=== PATIENT | male | born 1960 | race Caucasian/White ===

== ENCOUNTER 2020-08-31 11:06 | Inpatient (IN) | payer OTHER ==
[~2020-08-31] VITALS: Ht 180.3 cm; Wt 84.1 kg
[2020-08-31 12:06] LABS: BASOPHILS 0 % (0-2); EOSINOPHILS 0 % (0-7); HEMATOCRIT 36.3 % (42.0-54.0); HEMOGLOBIN 12.8 g/dL (13.5-17.5); IMMATURE GRANULOCYTES 0.3 % (0-5); LYMPHOCYTE ABS# 0.55 10x3/uL (1.32-3.57); LYMPHOCYTES 7.4 % (15-50); MCH 29.7 pg (26.0-34.0); MCHC 35.3 g/dL (31.0-37.0); MCV 84.2 fL (80.0-100.0); MEAN PLATELET VOLUME 9.3 fL (7.4-10.4); MONOCYTES 6.7 % (2-11); NEUTROPHIL ABS# 6.34 10x3/uL (1.78-5.38); NEUTROPHILS 85.6 % (40-80); PLATELET COUNT 283 10x3/uL (130-400); RBC 4.31 10x6/uL (4.20-6.10); RDW 11.8 % (11.5-14.5); WBC 7.4 10x3/uL (4.8-10.8)
[2020-08-31 12:16] LABS: APTT 44.2 SECONDS (22.8-39.4)
[2020-08-31 12:17] LABS: CALC OSMOLALITY 267 mosm/kg (275-300); CALCIUM 8.5 mg/dL (8.5-10.1); CARBON DIOXIDE 28.1 mmol/L (21.0-32.0); CHLORIDE - SERUM 97 mmol/L (98-107); CREATININE - SERUM 1.3 mg/dL (0.6-1.3); GLUCOSE 126 mg/dL (74-106); INR 1.17 (0.85-1.17); POTASSIUM - SERUM 4.5 mmol/L (3.5-5.1); PROTIME 13.8 SECONDS (11.6-15.0); SODIUM 131 mmol/L (136-145); UREA NITROGEN 22 mg/dL (7-18); eGFR NON AFRICAN AMERICAN 60 mL/min (90-120)
[2020-08-31 12:32] LABS: ALBUMIN 2.7 g/dL (3.4-5.0); ALKALINE PHOSPHATASE 41 U/L (30-120); ALT (SGPT) 28 U/L (10-68); BILIRUBIN - TOTAL 0.47 mg/dL (0.2-1.3); CKMB 0.4 U/L (0.0-3.6); CREATINE KINASE 135 UL (21-232); PRO BNP 542 pg/mL (0-125); PROTEIN - SERUM 6.4 g/dL (6.4-8.2)
[2020-08-31 12:34] LABS: TROPONIN-I < 0.017 ng/mL (0.000-0.060)
[2020-08-31 14:00] VITALS: BP 100/61
[2020-08-31 14:45] VITALS: BP 106/70
[2020-08-31 15:01] VITALS: BP 105/64
--- NOTE | 2020-08-31 15:05 | NUR ---
RECEIVED PT TO ROOM 2101 VIA WHEELCHAIR, PT A/O X4, A LITTLE SOB ON RA, PLACED ON 2L NC AND ENCOURAGED PT TO TAKE IN DEEP BREATHS. RT HAND INFUSING NS AT 100CC/HR. ORIENTED PT TO ROOM AND CALL LIGHT, WILL ASSESS PT AND START PLAN OF CARE.
[2020-08-31 15:18] VITALS: Ht 180.3 cm; Wt 84.1 kg
[2020-08-31 15:45] LABS: C-REACTIVE PROTEIN 4.1 mg/dL (0.0-0.9)
--- NOTE | 2020-08-31 16:22 | NUR ---
PT RESTING COMFORTABLY IN BED, DENIES ANY NEEDS. CALL LIGHT IN REACH.
--- NOTE | 2020-08-31 16:32 | NUR ---
UPDATED PT'S AYAKA ABOUT PT'S CONDITION AND PLAN OF CARE.
--- NOTE | 2020-08-31 19:13 | NUR ---
RECEIVED REPORT, WILL ASSUME CARE OF PT, SLEEPING, NO DISTRESS NOTICED, BED IS LOW, SRX2, CALL LIGHT IN REACH, WILL CONTINUE PLAN OF CARE
[2020-08-31 19:32] VITALS: BP 101/64
[2020-08-31 22:21] VITALS: BP 104/65
--- NOTE | 2020-08-31 23:57 | NUR ---
I have reviewed this patient and I concur with the Shift Assessment completed by the Licensed Practical Nurse today this shift.
[2020-09-01 05:52] LABS: BASOPHILS 0 % (0-2); EOSINOPHILS 0 % (0-7); HEMATOCRIT 36.8 % (42.0-54.0); HEMOGLOBIN 12.7 g/dL (13.5-17.5); IMMATURE GRANULOCYTES 0.6 % (0-5); LYMPHOCYTE ABS# 0.58 10x3/uL (1.32-3.57); LYMPHOCYTES 11.8 % (15-50); MCH 29.1 pg (26.0-34.0); MCHC 34.5 g/dL (31.0-37.0); MCV 84.2 fL (80.0-100.0); MEAN PLATELET VOLUME 9.4 fL (7.4-10.4); MONOCYTES 8.1 % (2-11); NEUTROPHILS 79.5 % (40-80); PLATELET COUNT 306 10x3/uL (130-400); RBC 4.37 10x6/uL (4.20-6.10); RDW 11.8 % (11.5-14.5); WBC 4.9 10x3/uL (4.8-10.8)
[2020-09-01 06:11] LABS: ALBUMIN 2.4 g/dL (3.4-5.0); ANION GAP 12.2 mmol/L (8-16); BILIRUBIN - TOTAL 0.37 mg/dL (0.2-1.3); CALCIUM 8.3 mg/dL (8.5-10.1); CARBON DIOXIDE 26.4 mmol/L (21.0-32.0); CREATININE - SERUM 1.2 mg/dL (0.6-1.3); MAGNESIUM - SERUM 2.4 mg/dL (1.8-2.4); POTASSIUM - SERUM 4.6 mmol/L (3.5-5.1); PROTEIN - SERUM 6.2 g/dL (6.4-8.2)
[2020-09-01 08:25] VITALS: BP 92/54
--- NOTE | 2020-09-01 08:41 | NUR ---
AM MEDS GIVEN AT THIS TIME. PT A/O X4, RESP EVEN AND NONLABORED ON 2L NC. RT HAND IV INFUSING NS AT 100CC/HR. UPDATED PT ON PLAN OF CARE FOR TODAY. WAITING ON DR. MICHEL TO SEE IF THERE WILL BE ANY CHANGES TO PLAN OF CARE. ALL NEEDS MET, CALL LIGHT IN REACH, WILL CONTINUE PLAN OF CARE.
[2020-09-01 12:46] VITALS: BP 90/54
--- NOTE | 2020-09-01 14:34 | NUR ---
IVPB ZITHROMAX HUNG AT THIS TIME, PT RESTING COMFORTABLY IN BED. PROVIDED PT WITH FRESH CUP OF ICE WATER. ALL NEEDS MET, CALL LIGHT IN REACH.
[2020-09-01 17:01] VITALS: BP 98/58
[2020-09-01 20:56] VITALS: BP 122/75
--- NOTE | 2020-09-01 22:39 | NUR ---
O2 SAT 89% ON RA AT REST, O2 2 L NC REAPPLIED O2 SAT 92-93% INCREASED TO 3 L NC PER ORDER TO KEEP SAT >94% O2 SAT 94% ON 3 L NC
--- NOTE | 2020-09-02 00:04 | NUR ---
TELE REPORTS PT HR 37-40 AND THEN UP TO 76. BP 120/61 O2 SAT 96% ON 3 L NC
--- NOTE | 2020-09-02 00:18 | NUR ---
RT REOPORTS PT C/O THROAT SWELLING WITH ALBUTEROL TX, O2 SAT 92 ON 2 L NC, PT NOW ON 4 L NC
--- NOTE | 2020-09-02 00:38 | NUR ---
spoke to BODY SERVICE TEAM MEMBER PROFESSOR SCULPTURE, JENNI, ORDERS TO HOLD ALBUTEROL. O2 SAT 92 % ON 4 L NC, BP 115/51 HR 54. PT REPORTS THAT HE FEELS IF HIS THROAT IS CLSOING UP WHENEVER HE USES ALBUTEROL. ALBUTEROL ADDED TO ALLERGY LIST
[2020-09-02 01:48] VITALS: BP 99/65
[2020-09-02 05:26] VITALS: BP 120/65
[2020-09-02 08:22] VITALS: BP 106/72
[2020-09-02 09:38] LABS: BASOPHILS 0.1 % (0-2); EOSINOPHILS 0.6 % (0-7); HEMATOCRIT 36.6 % (42.0-54.0); HEMOGLOBIN 12.6 g/dL (13.5-17.5); IMMATURE GRANULOCYTES 1.4 % (0-5); LYMPHOCYTE ABS# 1.26 10x3/uL (1.32-3.57); LYMPHOCYTES 15.5 % (15-50); MCH 29.4 pg (26.0-34.0); MCHC 34.4 g/dL (31.0-37.0); MCV 85.5 fL (80.0-100.0); MEAN PLATELET VOLUME 9.3 fL (7.4-10.4); MONOCYTES 7.7 % (2-11); NEUTROPHIL ABS# 6.08 10x3/uL (1.78-5.38); NEUTROPHILS 74.7 % (40-80); PLATELET COUNT 327 10x3/uL (130-400); RBC 4.28 10x6/uL (4.20-6.10); RDW 12.1 % (11.5-14.5); WBC 8.1 10x3/uL (4.8-10.8)
[2020-09-02 09:53] LABS: ALBUMIN 2.3 g/dL (3.4-5.0); ANION GAP 10.9 mmol/L (8-16); BILIRUBIN - TOTAL 0.34 mg/dL (0.2-1.3); CALCIUM 8.4 mg/dL (8.5-10.1); CARBON DIOXIDE 27.1 mmol/L (21.0-32.0); CREATININE - SERUM 1.1 mg/dL (0.6-1.3); MAGNESIUM - SERUM 2.4 mg/dL (1.8-2.4); PROTEIN - SERUM 5.8 g/dL (6.4-8.2)
[2020-09-02 10:49] VITALS: BP 111/74
--- NOTE | 2020-09-02 18:52 | NUR ---
pt awake alert, lying in bed. denies any needs continues under covid isolation. will continue to monitor
[2020-09-02 23:13] VITALS: BP 119/74
--- NOTE | 2020-09-03 01:20 | NUR ---
PT O2 SAT 88% ON 3 L NC, RT IN ROOM WITH PT O2 TITRATED UP TO 5 L NC, O2 SAT 94-95% PT WITH NO ACUTE DISTRESS. PAGED PULM TO NOTIFY PT EDUCATED NOT TO AMBULATE INTO BATHROOM TO USE URINAL.
[2020-09-03 01:35] VITALS: BP 122/70
--- NOTE | 2020-09-03 01:43 | NUR ---
O2 SAT 97% ON 5 L NC, O2 TITRATED TO 4 L NC, 02 SAT 96%, WILL CONTINUE TO MONITOR
[2020-09-03 05:57] VITALS: BP 129/73
[2020-09-03 07:18] LABS: BASOPHILS 0.1 % (0-2); EOSINOPHILS 0.9 % (0-7); HEMATOCRIT 38.3 % (42.0-54.0); IMMATURE GRANULOCYTES 1.7 % (0-5); LYMPHOCYTE ABS# 1.36 10x3/uL (1.32-3.57); LYMPHOCYTES 15.7 % (15-50); MCH 28.8 pg (26.0-34.0); MCHC 33.9 g/dL (31.0-37.0); MCV 84.9 fL (80.0-100.0); MEAN PLATELET VOLUME 9.2 fL (7.4-10.4); MONOCYTES 11.8 % (2-11); NEUTROPHIL ABS# 6.04 10x3/uL (1.78-5.38); NEUTROPHILS 69.8 % (40-80); PLATELET COUNT 381 10x3/uL (130-400); RBC 4.51 10x6/uL (4.20-6.10); WBC 8.7 10x3/uL (4.8-10.8)
[2020-09-03 07:36] LABS: ALBUMIN 2.3 g/dL (3.4-5.0); ANION GAP 9.8 mmol/L (8-16); BILIRUBIN - TOTAL 0.41 mg/dL (0.2-1.3); CALCIUM 8.5 mg/dL (8.5-10.1); CARBON DIOXIDE 29.6 mmol/L (21.0-32.0); CREATININE - SERUM 1.1 mg/dL (0.6-1.3); MAGNESIUM - SERUM 2.3 mg/dL (1.8-2.4); POTASSIUM - SERUM 4.4 mmol/L (3.5-5.1); PROTEIN - SERUM 5.9 g/dL (6.4-8.2)
[2020-09-03 12:07] VITALS: BP 112/66
[2020-09-03 15:59] VITALS: BP 96/64
[2020-09-03 20:21] VITALS: BP 99/64
[2020-09-04 01:37] VITALS: BP 115/73
[2020-09-04 04:41] LABS: BASOPHILS 0.1 % (0-2); EOSINOPHILS 0.8 % (0-7); HEMATOCRIT 37.1 % (42.0-54.0); HEMOGLOBIN 12.7 g/dL (13.5-17.5); IMMATURE GRANULOCYTES 2.3 % (0-5); LYMPHOCYTE ABS# 1.27 10x3/uL (1.32-3.57); LYMPHOCYTES 16.6 % (15-50); MCH 29.2 pg (26.0-34.0); MCHC 34.2 g/dL (31.0-37.0); MCV 85.3 fL (80.0-100.0); MEAN PLATELET VOLUME 9.2 fL (7.4-10.4); MONOCYTES 9.8 % (2-11); NEUTROPHILS 70.4 % (40-80); PLATELET COUNT 392 10x3/uL (130-400); RBC 4.35 10x6/uL (4.20-6.10); WBC 7.7 10x3/uL (4.8-10.8)
[2020-09-04 04:49] VITALS: BP 113/72
[2020-09-04 05:04] LABS: ALBUMIN 2.2 g/dL (3.4-5.0); ANION GAP 7.1 mmol/L (8-16); BILIRUBIN - TOTAL 0.34 mg/dL (0.2-1.3); CALCIUM 8.3 mg/dL (8.5-10.1); CARBON DIOXIDE 29.4 mmol/L (21.0-32.0); CREATININE - SERUM 1.1 mg/dL (0.6-1.3); MAGNESIUM - SERUM 2.3 mg/dL (1.8-2.4); POTASSIUM - SERUM 4.5 mmol/L (3.5-5.1); PROTEIN - SERUM 5.9 g/dL (6.4-8.2)
--- NOTE | 2020-09-04 09:04 | NUR ---
AM MEDS GIVEN AT THIS TIME. PT TALKATIVE THIS MORNING, SPEAKS ABOUT WANTING TO GO HOME AND STATES DR MICHEL SAYS ITS A POSSIBILITY. RR EVEN NON LABORED WITH O2 IN PLACE. PT DENIES ANY PAIN, PRODUCTIVE COUGH NOTED. NO FURTHER NEEDS VOICED. CLWR.
[2020-09-04 10:26] VITALS: BP 104/61
[2020-09-04 12:00] VITALS: BP 105/59
--- NOTE | 2020-09-04 12:22 | NUR ---
MONITORED PT O2 ON ROOM AIR FROM 929-PRESENT. PT REMAINED ABOVE 93%. NOTIFIED TOSHIA LOZANO PRIOR TO VISITING WITH PT. PT PLAN TO D/C HOME PENDING DR MICHEL APPROVAL. PT AWARE AND AGREES.
[2020-09-04] MEDS ORDERED: FLORAJEN DIGES1 EACH PO (12:30)
[2020-09-04] MEDS ORDERED: MUCINEX600 MG PO (12:30)
[2020-09-04] MEDS ORDERED: FLOVENT HFA 11012 GM INH (12:30)
[2020-09-04] MEDS ORDERED: SINGULAIR10 MG PO (12:30)
[2020-09-04] MEDS ORDERED: TESSALON PERLE100 MG PO (12:30)
[2020-09-04] MEDS ORDERED: VITAMIN D325 MC1 PO (12:31)
[2020-09-04] MEDS ORDERED: DECADRON4 MG PO (12:31)
[2020-09-04] MEDS ORDERED: MELATONIN 3 MG1 TAB PO (12:31)
[2020-09-04] MEDS ORDERED: VITAMIN C PO (12:31)
[2020-09-04] MEDS ORDERED: OMNICEF300 MG PO (12:32)
[2020-09-04] MEDS ORDERED: AZITHROMYCIN500 MG PO (12:32)
--- NOTE | 2020-09-04 12:48 | NUR ---
PAGETony MICHEL FOR APPROVAL FOR D/C
--- NOTE | 2020-09-04 13:38 | NUR ---
SPOKE WITH DR MICHEL, PT WILL BE D/C HOME AFTER HIS DOSE OF REMDISIVER. CALLED PHARMACY FOR LAST DOSE TO BE BROUGHT UP FOR EARLY ADMINISTRATION.
--- NOTE | 2020-09-04 13:55 | NUR ---
DOSE 5 OF REMDISIVER STARTED AT THIS TIME. EDUCATED PT REGARDING PLAN TO D/C AFTER LIKE DR MICHEL STATED. PT STATES UNDERSTANDING.
--- NOTE | 2020-09-04 14:16 | NUR ---
D/C INSTRUCTIONS GIVEN TO PT AT THIS TIME INCLUDING MEDICATIONS AND FOLLOW UP APPOINTMENTS. PT STATES UNDERSTANDING, DENIES ANY QUESTIONS. IV INFUSING, CLWR.
--- NOTE | 2020-09-04 14:27 | MORECARE ---
CASE MANAGEMENT DISCHARGE SUMMARY PATIENT: SALOME VELAZQUEZ UNIT: [id number] ADM DATE: 08/31/20 AGE: 59 : 62 SEX: M ROOM/BED: D.2102 AUTHOR: MOLLY GARDNER PHYSICIAN: REFERRING PHYSICIAN: SHLOMO AVALOS MD DATE OF SERVICE: 09/04/20 Case Management Discharge Planning Summary DCP REVIEW SUMMARY ANTICIPATED D/C DATE: 09/04/2020 EXPECTED LOS : 4 CASE STATUS: DCP Initiated INITIAL REVIEW: 08/31/2020 INITIAL REVIEWER: Chelsea Shields FINAL DISCHARGE DISPOSITION: : FINAL REVIEWER: FINAL REVIEW DATE: DCP Focus Questions & Answers DCP Screen QUESTION: ANSWER High Risk Factors: : None Walking limitation: Patient stated self rated walking limitation present? : No Age: : 45 - 64 Prior living environment: : Lives with others Disability ranking: : Grade 1: No significant disability DCP Evaluation QUESTION: ANSWER Patient and/or caregiver agree upon recommended discharge plan? : Yes Family / Caregiver's ability to cope with chronic illness: : a. Adequate (ability to meet patient's medical needs, ensures patient attends medical appts.) Patient's current cognitive status: : *Oriented to person, place, situation, time and present Patient's ability to cope with chronic illness : d. No chronic illness Does the patient have the ability to pay for or attain post discharge needs / services? : Yes Functional screen assessment: : No issues identified Family / Caregiver's ability to cope with chronic illness: : a. Adequate (ability to meet patient's medical needs, ensures patient attends medical appts.) Physical Status: : Independent with ADL's Equipment needed for post hospitalization: : None Is there a likelihood that the patient will require additional services to return to the preadmission environment? : Yes Living Arrangements: : Home with Spouse/Significant Other Results of this evaluation have been discussed with: : Patient Patient with capacity for self-care or can be cared for in same environment as prior to hospitalization? : Yes Baseline cognitive status: : *Oriented to person, place, situation, time and present Physical environment modification needed / anticipated for discharge: : No Medication Management: : Patient states they do have transportation to slat pickler medications Medication Management: : Patient states can afford medications Planned post hospital services available for patient? : No Pharmacy name(s): : [facility] Planned post hospital services covered by insurance plan? : N/A Does Patient have transportation to get home and to follow-up medical appointments when discharged from the hospital? : Yes Would patient like to participate in any Care Coordination programs (if applicable): : Not applicable Does the patient have electricity at home? : Yes Does the patient have running water in their house? : Yes Equipment in use: : None Mental health screen: : No mental health history Psychosocial status: : Independent adult (18-64) Abuse/Neglect: : None Resources / Services in place: : None DCP Re-evaluation QUESTION: ANSWER Would patient like to participate in any Care Coordination programs (if applicable): : Not applicable PATIENT: SALOME VELAZQUEZ ENCOUNTER: [id number] MEDICAL RECORD#: [id number] ADMISSION DATE: 08/31/2020 DISCHARGE DATE: ATTENDING MD: ROBBIE AVALOS : AGE: 59 MARITAL STATUS: M DC PLAN ID: [id number] FACILITY: [facility] PRINTED ON: 09/04/20 14:26 CT All edits/amendments must be made on the electronic document DICTATION DATE: 09/04/201425 SVP RESEARCH & EBUSINESS OPERATIONS: MULU 09/04/201425 RPT#: [id number] DC DATE: STATUS: ADM IN [facility] [address] [place] [address] END OF REPORT
--- NOTE | 2020-09-04 15:10 | NUR ---
PT WHEELED TO PRIVATE VEHICLE AT THIS TIME WITH ALL BELONGINGS. NO DISTRESS NOTED ON DEPARTURE.
--- NOTE | 2020-09-04 16:23 | MORECARE ---
CASE MANAGEMENT DISCHARGE SUMMARY PATIENT: SALOME VELAZQUEZ UNIT: [id number] ADM DATE: 08/31/20 AGE: 59 : 62 SEX: M ROOM/BED: D.2102 AUTHOR: MOLLY GARDNER PHYSICIAN: REFERRING PHYSICIAN: SHLOMO AVALOS MD DATE OF SERVICE: 09/04/20 Case Management Discharge Planning Summary COMMENTS ENTERED DATE: 09/04/20 14:19 CT COMMENT TYPE: Discharge Planning REVIEWER: Chelsea Shields CM SPOKE WITH PATIENT ON THE PHONE TO COMPLETE DCP AND OFFER AVAILABILTY OF SERVICES IF NEEDED. PATIENT STATES THAT HE LIVES INDEPENDENTLY AT HOME WITH HIS SPOUSE AYAKA MARCUS [phone]. CM VERIFIED DISCHARGE ADDRESS AND THAT SPOUSE WILL PROVIDE TRANSPORTION FROM HOSPITAL. PATIENT STATES THAT HE IS ABLE TO DRIVE SELF TO AND FROM DOCTOR APPOINTMENTS AND TO OBTAIN MEDICATONS OF NEEDED SUPPLIES. PT STATES HIS PCP IS DR. AVALOS, AND USES [facility]. PT DENIES NEED FOR HOME HEALTH, REHAB SERVICES, OR MEDICAL EQUIPMENT AT THIS TIME. PATIENT INFORMED THAT IF HE FELT HIS NEEDS CHANGES HE SHOULD CALL I PCP OFFICE FOR REFERRAL IF NEEDED. PT VERBALIZED UNDERSTANDING AND IS ANXIOUSLY WAITING FOR DISCHARGE PAPERS. DCP REVIEW SUMMARY ANTICIPATED D/C DATE: 09/04/2020 EXPECTED LOS : 4 CASE STATUS: DCP Initiated INITIAL REVIEW: 08/31/2020 INITIAL REVIEWER: Chelsea Shields FINAL DISCHARGE DISPOSITION: : FINAL REVIEWER: FINAL REVIEW DATE: MTP Focus Questions & Answers DCP Screen QUESTION: ANSWER High Risk Factors: : None Walking limitation: Patient stated self rated walking limitation present? : No Age: : 45 - 64 Prior living environment: : Lives with others Disability ranking: : Grade 1: No significant disability DCP Evaluation QUESTION: ANSWER Patient and/or caregiver agree upon recommended discharge plan? : Yes Family / Caregiver's ability to cope with chronic illness: : a. Adequate (ability to meet patient's medical needs, ensures patient attends medical appts.) Patient's current cognitive status: : *Oriented to person, place, situation, time and present Patient's ability to cope with chronic illness : d. No chronic illness Does the patient have the ability to pay for or attain post discharge needs / services? : Yes Functional screen assessment: : No issues identified Family / Caregiver's ability to cope with chronic illness: : a. Adequate (ability to meet patient's medical needs, ensures patient attends medical appts.) Physical Status: : Independent with ADL's Equipment needed for post hospitalization: : None Is there a likelihood that the patient will require additional services to return to the preadmission environment? : Yes Living Arrangements: : Home with Spouse/Significant Other Results of this evaluation have been discussed with: : Patient Patient with capacity for self-care or can be cared for in same environment as prior to hospitalization? 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 : No [facility] Planned post hospital services covered by insurance plan? : N/A Does Patient have transportation to get home and to follow-up medical appointments when discharged from the hospital? : Yes Would patient like to participate in any Care Coordination programs (if applicable): : Not applicable Does the patient have electricity at home? : Yes Does the patient have running water in their house? : Yes Equipment in use: : None Mental health screen: : No mental health history Psychosocial status: : Independent adult (18-64) Abuse/Neglect: : None Resources / Services in place: : None DCP Re-evaluation QUESTION: ANSWER Would patient like to participate in any Care Coordination programs (if applicable): : Not applicable PATIENT: SALOME VELAZQUEZ ENCOUNTER: [id number] MEDICAL RECORD#: [id number] ADMISSION DATE: 08/31/2020 DISCHARGE DATE: 09/04/2020 ATTENDING MD: ROBBIE AVALOS : AGE: 59 MARITAL STATUS: M DC PLAN ID: [id number] FACILITY: [facility] PRINTED ON: 09/04/20 16:23 CT All edits/amendments must be made on the electronic document DICTATION DATE: 09/04/201622 ASSISTANT PROFESSOR SURGICAL TECHNOLOGY: MULU 09/04/201622 RPT#: [id number] DC DATE:09/04/20 STATUS: DIS IN [facility] [address] [place] [address] END OF REPORT
--- NOTE | 2020-09-07 17:03 | MORECARE ---
CASE MANAGEMENT DISCHARGE SUMMARY PATIENT: SALOME VELAZQUEZ UNIT: [id number] ADM DATE: 08/31/20 AGE: 59 : 62 SEX: M ROOM/BED: D.2102 AUTHOR: KENDRADOC PHYSICIAN: REFERRING PHYSICIAN: SHLOMO AVALOS MD DATE OF SERVICE: 09/07/20 Case Management Discharge Planning Summary COMMENTS ENTERED DATE: 09/04/20 14:19 CT COMMENT TYPE: Discharge Planning REVIEWER: Chelsea Shields CM SPOKE WITH PATIENT ON THE PHONE TO COMPLETE DCP AND OFFER AVAILABILTY OF SERVICES IF NEEDED. PATIENT STATES THAT HE LIVES INDEPENDENTLY AT HOME WITH HIS SPOUSE AYAKA MARCUS [phone]. CM VERIFIED DISCHARGE ADDRESS AND THAT SPOUSE WILL PROVIDE TRANSPORTION FROM HOSPITAL. PATIENT STATES THAT HE IS ABLE TO DRIVE SELF TO AND FROM DOCTOR APPOINTMENTS AND TO OBTAIN MEDICATONS OF NEEDED SUPPLIES. PT STATES HIS PCP IS DR. AVALOS, AND USES [facility]. PT DENIES NEED FOR HOME HEALTH, REHAB SERVICES, OR MEDICAL EQUIPMENT AT THIS TIME. PATIENT INFORMED THAT IF HE FELT HIS NEEDS CHANGES HE SHOULD CALL I PCP OFFICE FOR REFERRAL IF NEEDED. PT VERBALIZED UNDERSTANDING AND IS ANXIOUSLY WAITING FOR DISCHARGE PAPERS. DCP REVIEW SUMMARY ANTICIPATED D/C DATE: 09/04/2020 EXPECTED LOS : 4 CASE STATUS: DCP Initiated INITIAL REVIEW: 08/31/2020 INITIAL REVIEWER: Chelsea Shields FINAL DISCHARGE DISPOSITION: : FINAL REVIEWER: FINAL REVIEW DATE: AKP Focus Questions & Answers DCP Screen QUESTION: ANSWER High Risk Factors: : None Walking limitation: Patient stated self rated walking limitation present? : No Age: : 45 - 64 Prior living environment: : Lives with others Disability ranking: : Grade 1: No significant disability DCP Evaluation QUESTION: ANSWER Patient's ability to cope with chronic illness : d. No chronic illness Patient's current cognitive status: : *Oriented to person, place, situation, time and present Family / Caregiver's ability to cope with chronic illness: : a. Adequate (ability to meet patient's medical needs, ensures patient attends medical appts.) Patient and/or caregiver agree upon recommended discharge plan? : Yes Physical Status: : Independent with ADL's Family / Caregiver's ability to cope with chronic illness: : a. Adequate (ability to meet patient's medical needs, ensures patient attends medical appts.) Functional screen assessment: : No issues identified Does the patient have the ability to pay for or attain post discharge needs / services? : Yes Living Arrangements: : Home with Spouse/Significant Other Is there a likelihood that the patient will require additional services to return to the preadmission environment? : Yes Equipment needed for post hospitalization: : None Baseline cognitive status: : *Oriented to person, place, situation, time and present Patient with capacity for self-care or can be cared for in same environment as prior to hospitalization? : Yes Results of this evaluation have been discussed with: : Patient Physical environment modification needed / anticipated for discharge: : No Medication Management: : Patient states can afford medications Medication Management: : Patient states they do have transportation to picking machine operator helper medications Pharmacy name(s): : [facility] Planned post hospital services available for patient? : No Does Patient have transportation to get home and to follow-up medical appointments when discharged from the hospital? : Yes Planned post hospital services covered by insurance plan? : N/A Would patient like to participate in any Care Coordination programs (if applicable): : Not applicable Does the patient have electricity at home? : Yes Does the patient have running water in their house? : Yes Equipment in use: : None Mental health screen: : No mental health history Psychosocial status: : Independent adult (18-64) Abuse/Neglect: : None Resources / Services in place: : None DCP Re-evaluation QUESTION: ANSWER Would patient like to participate in any Care Coordination programs (if applicable): : Not applicable PATIENT: SALOME VELAZQUEZ ENCOUNTER: [id number] MEDICAL RECORD#: [id number] ADMISSION DATE: 08/31/2020 DISCHARGE DATE: 09/04/2020 ATTENDING MD: ROBBIE AVALOS : AGE: 59 MARITAL STATUS: M DC PLAN ID: [id number] FACILITY: [facility] PRINTED ON: 09/07/20 17:03 CT All edits/amendments must be made on the electronic document DICTATION DATE: 09/07/201702 FIRST CRUSHER: MULU 09/07/201702 RPT#: [id number] DC DATE:09/04/20 STATUS: DIS IN [facility] [address] [place] [address] END OF REPORT
== END 2020-09-04 15:10 | disposition home or self-care (01) | DRG 177 ==
LOC: D.ER 11:06 → D.M2 14:01
PROVIDERS: Family Medicine; Internal Medicine Pulmonary Disease; ADMIT Family Medicine; ATTEND Family Medicine
PROC: XW033E5 Introduction of Remdesivir Anti-infective into Peripheral Vein, Percutaneous Approach, New Technology Group 5 (ICD-10-PCS; principal; 2020-09-02)
DX: U07.1 COVID-19 (principal); J12.82 Pneumonia due to coronavirus disease 2019; J96.01 Acute respiratory failure with hypoxia; E87.1 Hypo-osmolality and hyponatremia; D64.9 Anemia, unspecified

== ENCOUNTER → 2020-10-02 09:47 | Outpatient (CLI) | payer OTHER ==
[2020-08-31 15:18] VITALS: BMI 25.8
[~2020-10-02 09:47] MED LIST: AZITHROMYCIN500 MG PO; DECADRON4 MG PO; FLORAJEN DIGES1 EACH PO; FLOVENT HFA 11012 GM INH; MELATONIN 3 MG1 TAB PO; MUCINEX600 MG PO; OMNICEF300 MG PO; SINGULAIR10 MG PO; TESSALON PERLE100 MG PO; VITAMIN C PO; VITAMIN D325 MC1 PO
== END | disposition home or self-care (01) ==
LOC: D.RAD 09:47
PROVIDERS: ATTEND Internal Medicine Pulmonary Disease
DX: Z20.822 Contact with and (suspected) exposure to COVID-19 (principal)